=== PATIENT | male | born 1965 | race Caucasian/White ===

== ENCOUNTER 2022-03-16 15:17 | Outpatient (CLI) | payer OTHER, SELFPAY | END 2022-03-16 15:18 | disposition home or self-care (01) | LOC: LKVREF 15:32 | PROVIDERS: PCP Family Medicine; Visit Provider Registered Nurse | DX: R53.83 Other fatigue (principal); R51.9 Headache, unspecified; M25.50 Pain in unspecified joint | CPT/HCPCS: 86618 ==

== ENCOUNTER 2022-07-10 08:37 | Outpatient (CLI) | payer OTHER, SELFPAY ==
[2022-07-10 12:59] LABS: Chloride* 102 mmol/L (96-114)
[2022-07-10 13:00] LABS: Potassium* 4.5 mmol/L (3.6-5.1); Sodium* 136 mmol/L (135-149)
[2022-07-10 13:02] LABS: Creatinine* 0.7 mg/dL (0.5-1.5); Estimated Glomerular Filt Rate 107 ml/min
[2022-07-10 13:03] LABS: Blood Urea Nitrogen* 26 mg/dL (7-30); Calcium* 9.2 mg/dL (8.4-10.6); Carbon Dioxide* 23 mmol/L (20-32); Glucose* 95 mg/dL (60-115)
== END 2022-07-10 08:38 | disposition home or self-care (01) ==
LOC: LONREF 08:41
PROVIDERS: PCP Family Medicine; Visit Provider Family Medicine
DX: I10 Essential (primary) hypertension (principal)
CPT/HCPCS: 80048

== ENCOUNTER 2023-08-06 08:23 | Outpatient (CLI) | payer OTHER, SELFPAY | END 2023-08-06 08:24 | disposition home or self-care (01) | PROVIDERS: PCP Family Medicine; Visit Provider Family Medicine | DX: I10 Essential (primary) hypertension (principal); Z13.220 Encounter for screening for lipoid disorders; Z12.5 Encounter for screening for malignant neoplasm of prostate | CPT/HCPCS: 80048; 80061; 84153 ==

== ENCOUNTER 2024-10-20 08:20 | Outpatient (CLI) | payer OTHER, SELFPAY | END 2024-10-20 08:21 | disposition home or self-care (01) | PROVIDERS: PCP Family Medicine; Visit Provider Family Medicine | DX: I10 Essential (primary) hypertension (principal); Z13.6 Encounter for screening for cardiovascular disorders | CPT/HCPCS: 80048; 80061 ==

== ENCOUNTER 2025-03-30 09:44 | Outpatient (CLI) | payer OTHER, SELFPAY | END 2025-03-30 09:45 | disposition home or self-care (01) | LOC: NFLDREF 04-04 10:36 | PROVIDERS: PCP Family Medicine; Referring Provider Family Medicine; Visit Provider Family Medicine | DX: R51.9 Headache, unspecified (principal); M54.2 Cervicalgia; M79.18 Myalgia, other site; Z11.8 Encounter for screening for other infectious and parasitic diseases | CPT/HCPCS: 86618; 87468; 87469; 87484; 87798 ==